=== PATIENT | female | born 1945 | race Caucasian/White ===

== ENCOUNTER 2019-06-09 11:46 | Emergency (ER) | payer BC, OTHER ==
[~2019-06-09] VITALS: Ht 162.6 cm; Wt 46.8 kg
[2019-06-09] MEDS ORDERED: buprenorphine/naloxone 8MG-2MG SUBlingual film SL STA (12:32)
[2019-06-09] MEDS ORDERED: ondansetron/PF 4mg/2ml inj IV ONE (12:35)
[2019-06-09] MEDS ORDERED: LORazepam 2 mg/ml vial IV ONE (12:35)
[2019-06-09] MEDS ORDERED: normal saline 1000ML IV soln IVB ONE ×2 (12:35→14:40)
[2019-06-09] MEDS ORDERED: ERYT333T76 PO (12:50)
[2019-06-09 13:00] LABS: BASOPHILS # (AUTO) 0.1 X10'3 (0-0.2); BASOPHILS % (AUTO) 0.7 % (0-1); EOSINOPHILS # (AUTO) 0.1 X10'3 (0-0.9); EOSINOPHILS % (AUTO) 0.6 % (0-6); HEMOGLOBIN 14.6 g/dl (12.0-16.0); LYMPHOCYTES # (AUTO) 1.3 X10'3 (1.1-4.8); LYMPHOCYTES % (AUTO) 14.5 % (21-51); MEAN CORPUSCULAR HEMOGLOBIN 30.4 PG (27.0-31.0); MEAN CORPUSCULAR HGB CONC 33.9 g/dL (33.0-36.5); MEAN CORPUSCULAR VOLUME 89.6 FL (78-98); MEAN PLATELET VOLUME 6.9 FL (7.4-10.4); MONOCYTES # (AUTO) 0.6 X10'3 (0-0.9); MONOCYTES % (AUTO) 6.4 % (2-12); NEUTROPHILS # (AUTO) 7.1 X10'3 (1.8-7.7); NEUTROPHILS % (AUTO) 77.8 % (42-75); PLATELET COUNT 367 X10'3 (140-440); RED CELL DISTRIBUTION WIDTH 14.8 % (11.5-14.5); WHITE BLOOD COUNT 9.1 X10'3 (4.5-11.0)
[2019-06-09 13:23] LABS: ALANINE AMINOTRANSFERASE 36 U/L (12-78); ALBUMIN 3.2 G/DL (3.4-5.0); ALBUMIN/GLOBULIN RATIO 0.7 (1.1-1.5); ALKALINE PHOSPHATASE 99 IU/L (46-116); ANION GAP 7 (8-16); ASPARTATE AMINO TRANSFERASE 18 U/L (10-37); BILIRUBIN,TOTAL 0.4 MG/DL (0.1-1.0); BLOOD UREA NITROGEN 12 MG/DL (7-18); BUN/CREATININE RATIO 12.5 (6.6-38.0); CALCIUM 9.4 MG/DL (8.5-10.1); CHLORIDE 99 MMOL/L (99-107); CREATININE 0.96 MG/DL (0.40-0.90); GLUCOSE 115 MG/DL (70-104); POTASSIUM 4.1 MMOL/L (3.5-5.1); SODIUM 133 MMOL/L (135-145); TOTAL CARBON DIOXIDE 27.1 MMOL/L (24-32); TOTAL PROTEIN 7.9 G/DL (6.4-8.2); eGFR 57 ML/MIN
[2019-06-09 14:04] LABS: CLARITY,URINE CLEAR (Clear); COLOR,URINE STRAW (Yellow); GLUCOSE, URINE NEGATIVE (Neg); KETONES,URINE NEGATIVE (Neg); LEUKOCYTE ESTERASE ,URINE SMALL (Neg); NITRITES, URINE NEGATIVE (Neg); OCCULT BLOOD,URINE MODERATE (Neg); PROTEIN,URINE NEGATIVE (Neg); UA COLLECTION TYPE STRAIGHT CATH; UROBILINOGEN,URINE 0.2 E.U/dL (0.2-1.0)
[2019-06-09 14:10] LABS: BACTERIA,URINE FEW /HPF (Neg)
[2019-06-09 14:11] LABS: MUCUS STRANDS FEW /LPF (Neg); SQUAMOUS EPITHELIAL CELL,UR FEW /LPF (FEW); WBC CLUMPS,URINE FEW /HPF (NEGATIVE)
[2019-06-09] MEDS ORDERED: CEPH500C5 PO (15:33)
[2019-06-09] MEDS ORDERED: ONDA4TAB12 PO (15:33)
[2019-06-09 15:48] VITALS: BP 132/87
[2019-06-09] MEDS ORDERED: CARI250T PO (15:48)
== END 2019-06-09 16:06 | disposition home or self-care (01) ==
LOC: ER 11:47
DX: F11.23 Opioid dependence with withdrawal (principal); N39.0 Urinary tract infection, site not specified; G89.29 Other chronic pain; Z88.2 Allergy status to sulfonamides; Z88.6 Allergy status to analgesic agent; Z79.2 Long term (current) use of antibiotics
CPT/HCPCS: 36415; 80053; 81001; 85025; 87088; 96374; 96375; 99284; J2060; J2405; J7030

== ENCOUNTER 2019-08-01 14:11 | Emergency (ER) | payer MEDICARE, MEDICAID ==
[~2019-08-01] VITALS: Ht 162.6 cm; Wt 52.0 kg
[~2019-08-01 14:11] MED LIST: CEPH500C5 PO; ERYT333T76 PO; ONDA4TAB12 PO
[2019-08-01 14:40] VITALS: BP 133/86
== END 2019-08-01 15:31 | disposition home or self-care (01) ==
LOC: ER 14:13
DX: M54.2 Cervicalgia (principal); G89.29 Other chronic pain; R22.1 Localized swelling, mass and lump, neck; R06.00 Dyspnea, unspecified; Z88.2 Allergy status to sulfonamides; Z88.8 Allergy status to other drugs, medicaments and biological substances; Z79.899 Other long term (current) drug therapy
CPT/HCPCS: 99281

== ENCOUNTER 2020-02-28 19:39 | Emergency (ER) | payer MEDICARE, MEDICAID ==
[~2020-02-28] VITALS: Ht 162.6 cm; Wt 46.4 kg
[2020-02-28] MEDS ORDERED: NIFE30TA2 PO (20:36)
[2020-02-28] MEDS ORDERED: LEVO125T PO (20:36)
[2020-02-28] MEDS ORDERED: PANT-47 PO (20:36)
[2020-02-28] MEDS ORDERED: METO-395 PO (20:36)
[2020-02-28] MEDS ORDERED: BUS15T PO (20:36)
[2020-02-28] MEDS ORDERED: morphine 4 MG/ML inj SYRINge IV ONE ×2 (20:50→21:10)
--- NOTE | 2020-02-28 22:00 | NUR ---
Pt's caregiver Violet phoned to inquire about the patient's status. Pt gave verbal permission to speak with the caregiver. Violet gave a phone number where she can be reached at [phone].
[2020-02-28 23:00] VITALS: BP 138/77
== END 2020-02-28 23:02 | disposition home or self-care (01) ==
LOC: ER 19:40
DX: M25.552 Pain in left hip (principal); M54.89 Other dorsalgia; G89.29 Other chronic pain; Z88.2 Allergy status to sulfonamides; Z88.5 Allergy status to narcotic agent; Z88.8 Allergy status to other drugs, medicaments and biological substances; Z79.899 Other long term (current) drug therapy
CPT/HCPCS: 71250; 73502; 96374; 99284; J2270

== ENCOUNTER 2020-07-07 17:17 | Emergency (ER) | payer OTHER, MEDICAID ==
[~2020-07-07] VITALS: Ht 162.6 cm; Wt 43.6 kg
[~2020-07-07 17:17] MED LIST changes: +BUS15T PO; -CEPH500C5 PO; -ERYT333T76 PO; +LEVO125T PO; +METO-395 PO; +NIFE30TA2 PO; -ONDA4TAB12 PO; +PANT-47 PO
[2020-07-07] MEDS ORDERED: dexamethasone 4mg tablet PO ONE (17:45)
[2020-07-07 18:10] LABS: BASOPHILS # (AUTO) 0.1 X10'3 (0-0.2); BASOPHILS % (AUTO) 2.1 % (0-1); EOSINOPHILS # (AUTO) 0.2 X10'3 (0-0.9); HEMOGLOBIN 13.9 g/dl (12.0-16.0); LYMPHOCYTES # (AUTO) 1.7 X10'3 (1.1-4.8); MONOCYTES # (AUTO) 0.5 X10'3 (0-0.9); NEUTROPHILS # (AUTO) 4.1 X10'3 (1.8-7.7)
[2020-07-07 18:11] LABS: CLARITY,URINE SLIGHTLY CLOUDY (Clear); COLOR,URINE YELLOW (Yellow); GLUCOSE, URINE NEGATIVE (Neg); KETONES,URINE NEGATIVE (Neg); LEUKOCYTE ESTERASE ,URINE MODERATE (Neg); NITRITES, URINE NEGATIVE (Neg); OCCULT BLOOD,URINE TRACE-INTACT (Neg); PH,URINE 6.5 (4.8-8.0); PROTEIN,URINE NEGATIVE (Neg); UROBILINOGEN,URINE 0.2 E.U/dL (0.2-1.0)
[2020-07-07 18:12] LABS: EOSINOPHILS % (AUTO) 3.6 % (0-6); HEMATOCRIT 42.2 % (35.0-45.0); LYMPHOCYTES % (AUTO) 25.7 % (21-51); MEAN CORPUSCULAR HEMOGLOBIN 33.1 PG (27.0-31.0); MEAN CORPUSCULAR VOLUME 100.3 FL (78-98); MEAN PLATELET VOLUME 7.2 FL (7.4-10.4); MONOCYTES % (AUTO) 7.5 % (2-12); NEUTROPHILS % (AUTO) 61.1 % (42-75); PLATELET COUNT 274 X10'3 (140-440); RED BLOOD COUNT 4.21 X10'6 (4.20-5.60); WHITE BLOOD COUNT 6.8 X10'3 (4.5-11.0)
[2020-07-07 18:15] LABS: ALANINE AMINOTRANSFERASE 30 U/L (12-78); ALBUMIN 3.6 G/DL (3.4-5.0); ALBUMIN/GLOBULIN RATIO 0.8 (1.1-1.5); ALKALINE PHOSPHATASE 73 IU/L (46-116); ANION GAP 9 (8-16); ASPARTATE AMINO TRANSFERASE 46 U/L (10-37); BILIRUBIN,TOTAL 0.2 MG/DL (0.1-1.0); BLOOD UREA NITROGEN 12 MG/DL (7-18); BUN/CREATININE RATIO 10.6 (6.6-38.0); CALCIUM 8.3 MG/DL (8.5-10.1); CHLORIDE 103 MMOL/L (99-107); CREATININE 1.13 MG/DL (0.40-0.90); GLUCOSE 87 MG/DL (70-104); POTASSIUM 3.5 MMOL/L (3.5-5.1); SODIUM 137 MMOL/L (135-145); TOTAL CARBON DIOXIDE 24.9 MMOL/L (24-32); TOTAL PROTEIN 8.4 G/DL (6.4-8.2); eGFR 47 ML/MIN
[2020-07-07 18:19] LABS: UA COLLECTION TYPE URINAL
[2020-07-07 18:20] LABS: BACTERIA,URINE FEW /HPF (Neg); RBC,URINE 0-2 /HPF (0-2)
[2020-07-07 18:22] LABS: SQUAMOUS EPITHELIAL CELL,UR FEW /LPF (FEW); WBC,URINE 50-100 /HPF (0-4)
[2020-07-07] MEDS ORDERED: amox tr/potassium clavulanate 875/125mg TAB PO ONE (18:40)
[2020-07-07] MEDS ORDERED: AMOX-422 PO (18:42)
[2020-07-07] MEDS ORDERED: ONDA4TAB6 PO (18:47)
[2020-07-07 19:33] VITALS: BP 113/62
== END 2020-07-07 19:11 | disposition home or self-care (01) ==
LOC: ER 17:17
DX: T78.40XA Allergy, unspecified, initial encounter (principal); N39.0 Urinary tract infection, site not specified; K08.89 Other specified disorders of teeth and supporting structures; G89.29 Other chronic pain; Z88.2 Allergy status to sulfonamides; Z91.048 Other nonmedicinal substance allergy status; Z88.8 Allergy status to other drugs, medicaments and biological substances; Z79.2 Long term (current) use of antibiotics; Z79.899 Other long term (current) drug therapy; X58.XXXA Exposure to other specified factors, initial encounter
CPT/HCPCS: 80053; 81001; 85025; 87088; 99284

== ENCOUNTER 2020-08-26 01:41 | Emergency (ER) | payer MEDICAID, OTHER ==
[~2020-08-26] VITALS: Ht 162.6 cm; Wt 41.8 kg
[~2020-08-26 01:41] MED LIST changes: +ONDA4TAB6 PO
[2020-08-26] MEDS ORDERED: ondansetron 4mg rapidly disintigrating tab PO ONE (02:00)
[2020-08-26 02:44] VITALS: BP 133/79
== END 2020-08-26 03:44 | disposition home or self-care (01) ==
LOC: ER 01:42
DX: R51.9 Headache, unspecified (principal); R11.0 Nausea; R25.1 Tremor, unspecified; I10 Essential (primary) hypertension; G89.29 Other chronic pain; Z88.2 Allergy status to sulfonamides; Z88.8 Allergy status to other drugs, medicaments and biological substances; Z91.048 Other nonmedicinal substance allergy status; Z79.899 Other long term (current) drug therapy
CPT/HCPCS: 70450; 99284

== ENCOUNTER 2020-10-04 18:14 | Emergency (ER) | payer OTHER ==
[~2020-10-04] VITALS: Ht 162.6 cm; Wt 43.6 kg
[2020-10-04 19:02] LABS: ALANINE AMINOTRANSFERASE 20 U/L (12-78); ALBUMIN 3.7 G/DL (3.4-5.0); ALBUMIN/GLOBULIN RATIO 0.8 (1.1-1.5); ALKALINE PHOSPHATASE 83 IU/L (46-116); ANION GAP 5 (8-16); ASPARTATE AMINO TRANSFERASE 32 U/L (10-37); BILIRUBIN,TOTAL 0.3 MG/DL (0.1-1.0); BLOOD UREA NITROGEN 16 MG/DL (7-18); BUN/CREATININE RATIO 12.3 (6.6-38.0); CALCIUM 8.7 MG/DL (8.5-10.1); CHLORIDE 99 MMOL/L (99-107); GLUCOSE 100 MG/DL (70-104); PARTIAL THROMBOPLASTIN TIME 33 SECONDS (22-32); POTASSIUM 4.3 MMOL/L (3.5-5.1); SODIUM 135 MMOL/L (135-145); TOTAL CARBON DIOXIDE 30.7 MMOL/L (24-32); TOTAL PROTEIN 8.4 G/DL (6.4-8.2); eGFR 40 ML/MIN
[2020-10-04 19:06] LABS: BASOPHILS # (AUTO) 0.1 X10'3 (0-0.2); BASOPHILS % (AUTO) 1.4 % (0-1); EOSINOPHILS # (AUTO) 0.2 X10'3 (0-0.9); EOSINOPHILS % (AUTO) 3.2 % (0-6); HEMATOCRIT 40.3 % (35.0-45.0); HEMOGLOBIN 13.4 g/dl (12.0-16.0); LYMPHOCYTES # (AUTO) 1.3 X10'3 (1.1-4.8); LYMPHOCYTES % (AUTO) 21.8 % (21-51); MEAN CORPUSCULAR HEMOGLOBIN 32.5 PG (27.0-31.0); MEAN CORPUSCULAR HGB CONC 33.3 g/dL (33.0-36.5); MEAN CORPUSCULAR VOLUME 97.6 FL (78-98); MEAN PLATELET VOLUME 7.4 FL (7.4-10.4); MONOCYTES # (AUTO) 0.5 X10'3 (0-0.9); MONOCYTES % (AUTO) 8.3 % (2-12); NEUTROPHILS # (AUTO) 3.8 X10'3 (1.8-7.7); NEUTROPHILS % (AUTO) 65.3 % (42-75); PLATELET COUNT 307 X10'3 (140-440); RED BLOOD COUNT 4.13 X10'6 (4.20-5.60); RED CELL DISTRIBUTION WIDTH 14.7 % (11.5-14.5); WHITE BLOOD COUNT 5.8 X10'3 (4.5-11.0)
--- NOTE | 2020-10-04 19:23 | NUR ---
Dr. Dawkins at bedside.
--- NOTE | 2020-10-04 19:33 | NUR ---
pt talinig with family at this time. pt is prepared for dc. pts is at home to receive her if we can provide her a taxi ride home. Addendum: 10/04/20 at 1949 by MO [id number], PT THOUGHT SHE WAS GOING TO BE DISCHARGED WHEN TALKING WITH FAMILY AND TRYING TO COORDINATE A RIDE FOR DC. PT UPDATED THAT WHE NEED TO COMPLERTE HER EVALUATION, LABS, SCANS BEFORE WE KNOW HER FINAL DISPOSITION. PT IS AGREEABLE TO THIS.
[2020-10-04] MEDS ORDERED: ondansetron/PF 4mg/2ml inj IV ONE (19:35)
--- NOTE | 2020-10-04 19:37 | NUR ---
Per Dr. Dawkins, no gallagher or strait cath.
[2020-10-04] MEDS: morphine 4 MG/ML inj SYRINge IV PRN ×2 (19:44→20:10)
--- NOTE | 2020-10-04 19:49 | NUR ---
pt given morphine 4 mg and zofran 4 mg iv. taken to ct.
[2020-10-04] MEDS ORDERED: HYDR-3965 PO (20:21)
[2020-10-04] MEDS ORDERED: HYDROcodone/acetaminophen 10/325mg tab PO ONE (20:55)
--- NOTE | 2020-10-04 21:14 | NUR ---
Pt has no one to transport her home. States she lives in [place] in a home alone, but has a few caregivers that regularly come to help her. States they only work M-F and cannot pick her up. states she has no money for taxi or to pay for [employer] ($[phone]). Dr. Juancho palma and Pt is elgible to be transported w/[facility] ambulance service. P/U scheduled for 2229.
[2020-10-04 22:31] VITALS: BP 155/94
== END 2020-10-04 22:41 | disposition home or self-care (01) ==
LOC: ER 18:15
DX: S70.01XA Contusion of right hip, initial encounter (principal); S09.90XA Unspecified injury of head, initial encounter; G89.29 Other chronic pain; Z86.73 Personal history of transient ischemic attack (TIA), and cerebral infarction without residual deficits; Z88.2 Allergy status to sulfonamides; Z88.5 Allergy status to narcotic agent; Z88.8 Allergy status to other drugs, medicaments and biological substances; Z79.899 Other long term (current) drug therapy; W18.39XA Other fall on same level, initial encounter; Y93.9 Activity, unspecified; Y92.89 Other specified places as the place of occurrence of the external cause; Y99.8 Other external cause status
CPT/HCPCS: 36415; 70450; 71045; 73502; 80053; 85025; 85610; 85730; 86885; 86900; 86901; 96374; 96375; 99285; J2270; J2405

== ENCOUNTER 2020-11-27 16:01 | Emergency (ER) | payer OTHER ==
[~2020-11-27] VITALS: Ht 154.9 cm; Wt 41.8 kg
[2020-11-27 16:36] LABS: BASOPHILS # (AUTO) 0.1 X10'3 (0-0.2); BASOPHILS % (AUTO) 1.7 % (0-1); EOSINOPHILS # (AUTO) 0.2 X10'3 (0-0.9); EOSINOPHILS % (AUTO) 2.5 % (0-6); HEMATOCRIT 39.4 % (35.0-45.0); HEMOGLOBIN 12.9 g/dl (12.0-16.0); LYMPHOCYTES # (AUTO) 1.5 X10'3 (1.1-4.8); MEAN CORPUSCULAR HEMOGLOBIN 31.6 PG (27.0-31.0); MEAN CORPUSCULAR HGB CONC 32.8 g/dL (33.0-36.5); MEAN CORPUSCULAR VOLUME 96.2 FL (78-98); MEAN PLATELET VOLUME 7.2 FL (7.4-10.4); MONOCYTES # (AUTO) 0.7 X10'3 (0-0.9); MONOCYTES % (AUTO) 10.5 % (2-12); NEUTROPHILS % (AUTO) 62.3 % (42-75); PLATELET COUNT 278 X10'3 (140-440); RED BLOOD COUNT 4.09 X10'6 (4.20-5.60); RED CELL DISTRIBUTION WIDTH 14.7 % (11.5-14.5); WHITE BLOOD COUNT 6.5 X10'3 (4.5-11.0)
[2020-11-27 16:48] LABS: ALANINE AMINOTRANSFERASE 10 U/L (12-78); ALBUMIN 3.8 G/DL (3.4-5.0); ALBUMIN/GLOBULIN RATIO 0.8 (1.1-1.5); ALKALINE PHOSPHATASE 70 IU/L (46-116); ANION GAP 11 (8-16); ASPARTATE AMINO TRANSFERASE 16 U/L (10-37); BILIRUBIN,TOTAL 0.4 MG/DL (0.1-1.0); BLOOD UREA NITROGEN 11 MG/DL (7-18); CALCIUM 9.2 MG/DL (8.5-10.1); CHLORIDE 101 MMOL/L (99-107); CREATININE 1.22 MG/DL (0.40-0.90); GLUCOSE 95 MG/DL (70-104); POTASSIUM 4.5 MMOL/L (3.5-5.1); SODIUM 136 MMOL/L (135-145); TOTAL CARBON DIOXIDE 24.2 MMOL/L (24-32); TOTAL PROTEIN 8.6 G/DL (6.4-8.2); eGFR 43 ML/MIN
[2020-11-27 16:50] LABS: LIPASE < 50 U/L (73-393); TROPONIN I < 0.04 NG/ML (0.0-0.05)
[2020-11-27 17:35] LABS: CLARITY,URINE CLOUDY (Clear); COLOR,URINE YELLOW (Yellow); GLUCOSE, URINE NEGATIVE (Neg); KETONES,URINE NEGATIVE (Neg); LEUKOCYTE ESTERASE ,URINE MODERATE (Neg); NITRITES, URINE NEGATIVE (Neg); OCCULT BLOOD,URINE MODERATE (Neg); PH,URINE 5.5 (4.8-8.0); PROTEIN,URINE 30 mg/dl (Neg); UROBILINOGEN,URINE 0.2 E.U/dL (0.2-1.0)
[2020-11-27 17:43] LABS: UA COLLECTION TYPE STRAIGHT CATH
[2020-11-27 17:44] LABS: BACTERIA,URINE 1+ /HPF (Neg); SQUAMOUS EPITHELIAL CELL,UR MODERATE /LPF (FEW); WBC CLUMPS,URINE MANY /HPF (NEGATIVE); WBC,URINE TNTC /HPF (0-4)
[2020-11-27] MEDS ORDERED: ondansetron/PF 4mg/2ml inj IV ONE (18:00)
[2020-11-27] MEDS ORDERED: CEPH250T PO (18:01)
[2020-11-27 18:08] VITALS: BP 159/80
== END 2020-11-27 19:37 | disposition home or self-care (01) ==
LOC: ER 16:01
DX: N39.0 Urinary tract infection, site not specified (principal); R10.84 Generalized abdominal pain; K62.5 Hemorrhage of anus and rectum; G89.29 Other chronic pain; Z86.73 Personal history of transient ischemic attack (TIA), and cerebral infarction without residual deficits; Z88.2 Allergy status to sulfonamides; Z88.5 Allergy status to narcotic agent; Z88.6 Allergy status to analgesic agent; Z88.8 Allergy status to other drugs, medicaments and biological substances; Z79.2 Long term (current) use of antibiotics; Z79.899 Other long term (current) drug therapy
CPT/HCPCS: 36415; 71045; 74176; 80053; 81001; 83690; 84484; 85025; 87088; 93005; 96374; 99285; J2405

== ENCOUNTER 2020-12-01 16:15 | Emergency (ER) | payer OTHER ==
[~2020-12-01] VITALS: Ht 162.6 cm; Wt 41.8 kg
[~2020-12-01 16:15] MED LIST changes: +CEPH250T PO
[2020-12-01 16:45] VITALS: BP 133/76
[2020-12-01] MEDS ORDERED: BACI1PAC7 TOP (17:13)
[2020-12-01] MEDS ORDERED: ondansetron 4mg rapidly disintigrating tab PO ONE (17:15)
--- NOTE | 2020-12-01 17:55 | NUR ---
PT TO ROOM, ASSUMED CARE.
[2020-12-01] MEDS ORDERED: HYDROcodone/acetaminophen 5mg/325mg tablet PO ONE (18:00)
[2020-12-01] MEDS ORDERED: bacitracin 15gm ointment TP ONE (18:40)
--- NOTE | 2020-12-01 18:40 | NUR ---
BACITRACIN APPLIED TO GARZA PER PA VERBAL ORDER
--- NOTE | 2020-12-01 18:54 | NUR ---
PT STATES CAN'T GET AHOLD OF FAMILY FOR RIDE HOME. STATES SHE WONT PAY FOR [employer]. OKAY TO GET CAB FOR PT. ETA 40 MIN.
--- NOTE | 2020-12-01 18:55 | NUR ---
40MIN ETA FROM NOW, FOR HOSPITAL PAY TAXI. PATIENT PLACED IN LOBBY.
== END 2020-12-01 18:56 | disposition home or self-care (01) ==
LOC: ER 16:16
DX: T24.112A Burn of first degree of left thigh, initial encounter (principal); T24.111A Burn of first degree of right thigh, initial encounter; G89.29 Other chronic pain; Z86.73 Personal history of transient ischemic attack (TIA), and cerebral infarction without residual deficits; Z88.2 Allergy status to sulfonamides; Z88.5 Allergy status to narcotic agent; Z79.899 Other long term (current) drug therapy; X08.8XXA Exposure to other specified smoke, fire and flames, initial encounter; Y93.89 Activity, other specified; Y92.89 Other specified places as the place of occurrence of the external cause; Y99.8 Other external cause status
CPT/HCPCS: 16000; 99284